=== PATIENT | female | born 1975 | race Caucasian/White ===

== ENCOUNTER → 2017-02-01 | Outpatient (CLI) | payer OTHER ==
[~2017-02-01] MED LIST: DELTASONE10 MG PO; HYDROCODONE BIT1 T11 PO; XANAX0.5 MG PO
== END | disposition home or self-care (01) ==
LOC: RAD 11:54
DX: R05 Cough (principal); R06.02 Shortness of breath; F17.200 Nicotine dependence, unspecified, uncomplicated

== ENCOUNTER 2017-03-28 18:03 | Emergency (ER) | payer OTHER ==
[~2017-03-28] VITALS: Ht 165.1 cm; Wt 113.4 kg
[2017-03-28] MEDS ORDERED: NORVASC10 MG PO (18:13)
[2017-03-28] MEDS ORDERED: COZAAR25 M1 PO (18:13)
[2017-03-28] MEDS ORDERED: NEURONTIN300 MG PO (18:13)
[2017-03-28] MEDS ORDERED: VISTARIL25 M2 PO (18:14)
[2017-03-28] MEDS ORDERED: CEPHALEXIN500 M1 PO (19:45)
[2017-03-28] MEDS ORDERED: BACTRIM DS 8001 TA1 PO (19:45)
== END 2017-03-28 19:45 | disposition home or self-care (01) ==
LOC: ED 18:03
DX: L03.116 Cellulitis of left lower limb (principal); F17.200 Nicotine dependence, unspecified, uncomplicated; Z79.899 Other long term (current) drug therapy

== ENCOUNTER → 2017-06-14 | Outpatient (CLI) | payer OTHER ==
[~2017-06-14] MED LIST changes: +BACTRIM DS 8001 TA1 PO; +CEPHALEXIN500 M1 PO; +COZAAR25 M1 PO; +NEURONTIN300 MG PO; +NORVASC10 MG PO; +VISTARIL25 M2 PO
== END | disposition home or self-care (01) ==
LOC: MRI 11:00
DX: M50.222 Other cervical disc displacement at C5-C6 level (principal); M50.223 Other cervical disc displacement at C6-C7 level; M48.02 Spinal stenosis, cervical region

== ENCOUNTER → 2017-07-12 | Outpatient (CLI) | payer OTHER | END | disposition home or self-care (01) | LOC: MRI 14:00 | DX: M51.36 Other intervertebral disc degeneration, lumbar region (principal); M12.88 Other specific arthropathies, not elsewhere classified, other specified site; M51.24 Other intervertebral disc displacement, thoracic region ==

== ENCOUNTER 2017-08-04 15:21 | Emergency (ER) | payer OTHER ==
[~2017-08-04] VITALS: Wt 113.4 kg
[2017-08-04 16:10] LABS: BILIRUBIN 1+ (NEGATIVE); BLOOD NEGATIVE (NEGATIVE); CLARITY SL CLOUDY (CLEAR); COLOR YELLOW (YELLOW); GLUCOSE NEGATIVE (NEGATIVE); KETONE TRACE (NEGATIVE); LEUKO ESTERASE NEGATIVE (NEGATIVE); NITRITE NEGATIVE (NEGATIVE); SPECIFIC GRAVITY 1.025 (1.005-1.030); UROBILINOGEN 0.2 E.U./dl (0.2-1.0)
[2017-08-04 16:16] LABS: BACTERIA 1+; MUCOUS TRACE; RBC 0-2 rbc/hpf (0-2); WBC 0-2 wbc/hpf (0-5)
[2017-08-04 16:30] LABS: BASO # 0.1 10*3/uL (0.0-0.1); BASO % 0.4 % (0.0-1.0); EOS # 0.1 10*3/uL (0.0-0.4); EOS % 0.5 % (1.0-4.0); HEMOGLOBIN 14.3 g/dl (12.0-16.0); LYMPH # 3.4 10*3/uL (1.3-4.4); LYMPH % 27.7 % (27.0-41.0); MEAN CELL VOLUME 94.5 fl (81.0-99.0); MEAN CORPUSCULAR HGB 31.4 pg (27.0-31.0); MEAN CORPUSCULAR HGB CONC 33.3 g/dl (33.0-37.0); MEAN PLATELET VOLUME 9.8 fl (9.6-12.3); MONO # 0.9 10*3/uL (0.1-1.0); MONO % 7.1 % (3.0-9.0); NEUT # 7.9 10*3/uL (2.3-7.9); NEUT % 63.5 % (47.0-73.0); PLATELET COUNT AUTOMATED 404 10*3/uL (130-400); RED BLOOD COUNT 4.55 10*6/uL (4.10-5.10); RED CELL DISTRI WIDTH 13.2 % (0-14.5); WHITE BLOOD COUNT 12.4 10*3/uL (4.8-10.8)
[2017-08-04 16:40] LABS: INTERNATIONAL NORM RATIO 0.9 (2.0-3.5)
[2017-08-04 16:44] LABS: ALBUMIN 3.5 gm/dl (3.1-4.5); ALKALINE PHOSPHATASE 106 U/L (45-117); BUN 16 mg/dl (7-24); CHLORIDE 107 mmol/L (98-107); CREATININE 0.73 mg/dL (0.55-1.02); LIPASE 111 U/L (73-393); SGOT/AST 26 IU/L (3-35); SGPT/ALT 68 U/L (12-78); SODIUM 139 mmol/L (136-145); TOTAL PROTEIN 8.4 gm/dL (6.4-8.2)
[2017-08-04 16:45] LABS: TROPONIN I < 0.015 ng/ml (<0.045)
[2017-08-04] MEDS ORDERED: ZITHROMAX250 MG PO (16:47)
[2017-08-04] MEDS ORDERED: PREDNISONE10 MG PO (16:47)
== END 2017-08-04 16:53 | disposition home or self-care (01) ==
LOC: ED 15:21
PROVIDERS: Nurse Practitioner Family
DX: J40 Bronchitis, not specified as acute or chronic (principal); H65.91 Unspecified nonsuppurative otitis media, right ear; R04.2 Hemoptysis; F17.200 Nicotine dependence, unspecified, uncomplicated; Z79.899 Other long term (current) drug therapy

== ENCOUNTER → 2017-09-06 | Outpatient (CLI) | payer OTHER ==
[~2017-09-06] MED LIST changes: +PREDNISONE10 MG PO; +ZITHROMAX250 MG PO
== END | disposition home or self-care (01) ==
LOC: CT 11:00
DX: R04.2 Hemoptysis (principal); R09.89 Other specified symptoms and signs involving the circulatory and respiratory systems; F17.200 Nicotine dependence, unspecified, uncomplicated

== ENCOUNTER → 2017-10-14 | Day surgery (SDC) | payer OTHER ==
[~2017-10-14] VITALS: Ht 165.1 cm; Wt 115.7 kg
--- NOTE | ~2017-10-14 | O ---
[place], [place] OPERATIVE NOTE NAME: SANDOR HULL UNIT #: [id number] ROOM: DOCTOR: KAIDEN MUNIZ MD BIRTHDATE: [birth year] DOS: 10/14/2017 GASTROENDOSCOPIC REPORT. INDICATIONS: A 42-year-old patient who has presented with multiple GI complaints, among which has been stool incontinence, epigastric distress, solid food dysphagia, abdominal pain. ALLERGIES: WELLBUTRIN. FAMILY HISTORY: Unknown, adopted. PAST SURGICAL HISTORY: , hysterectomy, D and C, right knee and left knee arthroscopies. PAST MEDICAL HISTORY: Hypertension and pain management chronically. SOCIAL HISTORY: Smoker and social alcohol consumer. PROCEDURE: Today's procedure part of investigation is panendoscopy plus biopsy, esophageal dilation, and colonoscopy. PREMEDICATION: Versed and Diprivan. SCOPE: Olympus forward-viewing gastroscope Q10 video. REPORT: After putting the patient in left lateral position and after application of lubricant to the scope, the scope was introduced. Thereafter, under direct visualization, advanced through the length of esophagus into gastric pouch into duodenal bulb. Mild gastritis is seen. Antral biopsy was obtained. Scope was withdrawn back to the proximal stomach, a balloon size 20 was introduced into the gastric pouch and size 20 was inflated and orally extracted. Highest resistance in thoracic and particularly upper esophagus was experienced. The patient extubated after antral biopsy, tolerated the procedure well. IMPRESSION: Gastritis, which could be secondary to her prednisone intake. DISCUSSION: We are going to adopt omeprazole 20 mg daily. That is going to take care of the ____, we are going to on the other hand proceed with colonoscopic evaluation. So impression is benign esophageal stricture, status post balloon dilation, gastritis, status post biopsy. PROCEDURE: Today's procedure part of investigation of abdominal pain, rectal incontinence is colonoscopy. PREMEDICATION: Versed and Diprivan. SCOPE: Olympus forward-viewing colonoscope 10L video. [place], [place] OPERATIVE NOTE NAME: SANDOR HULL UNIT #: [id number] ROOM: DOCTOR: KAIDEN MUNIZ MD BIRTHDATE: [birth year] REPORT: After putting the patient in left lateral position and after application of lubricant to rectal pouch and digital examination, the scope was introduced. Thereafter, under direct visualization, advanced through the length of colon without difficulty. Mild diverticulosis of sigmoid colon was appreciated. Base of cecum explored. Upon service identified ileocecal valve was defined. The patient was gradually extubated and tolerated the procedure well. IMPRESSION: Diverticulosis, otherwise no acute finding in the colon. An element of IBS has to be considered. The patient is already on Neurontin, hydrocodone as well, and prednisone therapy. I would symptomatically manage this with her high fiber diet and clinical reassessment, requestioning. Thank you very much indeed for your kind referral. KAIDEN MUNIZ MD CM:[place]:OPERATIVE NOTE [id number] KAIDEN MUNIZ MD 10/14/17 1557 interface
[2017-10-14 12:39] VITALS: BP 121/83
[2017-10-14 14:50] VITALS: BP 125/68
[2017-10-14 15:05] VITALS: BP 140/88
[2017-10-14 15:17] VITALS: BP 119/64
== END | disposition home or self-care (01) ==
LOC: SDC 10-11 14:00
DX: K29.50 Unspecified chronic gastritis without bleeding (principal); K57.30 Diverticulosis of large intestine without perforation or abscess without bleeding; F31.9 Bipolar disorder, unspecified; F17.210 Nicotine dependence, cigarettes, uncomplicated; B18.2 Chronic viral hepatitis C; Z98.51 Tubal ligation status; Z88.8 Allergy status to other drugs, medicaments and biological substances; Z90.710 Acquired absence of both cervix and uterus; I10 Essential (primary) hypertension; Z79.899 Other long term (current) drug therapy; G43.909 Migraine, unspecified, not intractable, without status migrainosus; M19.90 Unspecified osteoarthritis, unspecified site

== ENCOUNTER 2017-12-23 22:17 | Emergency (ER) | payer SELFPAY ==
[~2017-12-23] VITALS: Ht 167.6 cm; Wt 117.9 kg
[2017-12-23] MEDS ORDERED: MOBIC15 MG PO (22:31)
== END 2017-12-24 00:09 | disposition home or self-care (01) ==
LOC: ED 22:17
DX: S66.911A Strain of unspecified muscle, fascia and tendon at wrist and hand level, right hand, initial encounter (principal); Z79.899 Other long term (current) drug therapy; W22.01XA Walked into wall, initial encounter; Y93.89 Activity, other specified; Y92.89 Other specified places as the place of occurrence of the external cause; Y99.8 Other external cause status

== ENCOUNTER 2018-03-14 19:02 | Emergency (ER) | payer OTHER, MEDICAID ==
[~2018-03-14] VITALS: Ht 165.1 cm; Wt 113.4 kg
[~2018-03-14 19:02] MED LIST changes: +MOBIC15 MG PO
[2018-03-14] MEDS ORDERED: CEPHALEXIN500 M1 PO (20:33)
== END 2018-03-14 20:55 | disposition home or self-care (01) ==
LOC: ED 19:02
DX: S81.822A Laceration with foreign body, left lower leg, initial encounter (principal); F17.200 Nicotine dependence, unspecified, uncomplicated; Z98.51 Tubal ligation status; Z98.890 Other specified postprocedural states; Z79.899 Other long term (current) drug therapy; W19.XXXA Unspecified fall, initial encounter; Y93.89 Activity, other specified; Y92.89 Other specified places as the place of occurrence of the external cause; Y99.9 Unspecified external cause status

== ENCOUNTER → 2018-03-16 | Outpatient (CLI) | payer OTHER ==
[~2018-03-16] MED LIST changes: +CIPRO500 MG PO; +CLARITIN10 MG PO; +NICORETTE2 MG PO; +NORCO 10-325 T1 EACH PO; +PROTONIX40 MG PO; +ROBAXIN-750750 MG PO; +VITAMIN D5000 UNIT PO; +ZOFRAN8 M1 PO
== END | disposition home or self-care (01) ==
LOC: WOUNDCARE 00:40
DX: S81.812D Laceration without foreign body, left lower leg, subsequent encounter (principal); I10 Essential (primary) hypertension; I89.0 Lymphedema, not elsewhere classified; F17.210 Nicotine dependence, cigarettes, uncomplicated; W18.40XD Slipping, tripping and stumbling without falling, unspecified, subsequent encounter

== ENCOUNTER 2018-03-22 15:13 | Inpatient (IN) | payer OTHER ==
[~2018-03-22] VITALS: Ht 165.1 cm; Wt 114.1 kg
--- NOTE | ~2018-03-22 | WRIGHTHP ---
[place], [place] PATIENT HISTORY AND PHYSICAL EXAM [id number] UN[facility] #: [id number] ROOM: 404 DOCTOR: BEENA KRISHNA MD BIRTHDATE: [birth year] DOS: 03/22/2018 HISTORY OF PRESENT ILLNESS: The patient is 43 years old patient had a fall at home and had a large laceration of the left leg. She came to the Emergency Room and the wound was sutured up. This happened on March 14. She was seen in the office on March 15 and she was to see wound care, but she has been unable to go there because of her insurance is not approving the wound care locally so she came into the Emergency Room with complaints of increased pain, redness and swelling. She was admitted with cellulitis of the left leg with minimal amount of drainage from the wound. She denies having any chest pains or palpitations, does not have any fever or chills, does not have any abdominal pain, nausea, emesis. The patient does have underlying COPD, but does not seem to have any shortness of breath this morning. PAST MEDICAL HISTORY: Significant for; 1. Chronic neck pain, chronic low back pain, for which she takes multiple pain medications. 2. COPD. 3. Moderate cigarette smoker. 4. Benign hypertension. 5. Generalized anxiety disorder. MEDICATIONS: That she is on currently are amlodipine 10 daily, vitamin D 5000 units daily, gabapentin 600 t.i.d., Holden t.i.d., loratadine 10 daily, losartan 100 daily, meloxicam 7.5 b.i.d., methocarbamol 750 daily p.r.n., Protonix 40 mg daily. SOCIAL HISTORY: Smoker of about half to 1 pack of cigarettes. Denies using any alcohol. History of drug addiction in the past. PHYSICAL EXAMINATION: VITAL SIGNS: Graphic trend shows a pressure of 112/61, pulse of 80, respirations 17, temperature 97.8. LUNGS: Diminished breath sounds. No wheezes, rales or rhonchi heard. HEART: Regular. ABDOMEN: Obese, soft. EXTREMITIES: Without any edema on the right, small red, irritated, angry looking rash noticed on the right thigh on multiple areas, which appears to be contact dermatitis. Laceration on the left navarrete area is nicely sutured up with some surrounding redness with evidence of cellulitis seems to be subsiding. Minimal amount of serous drainage, which is normal at this current stage is also seen. No purulent drainage is seen. No foul smelling odor seen. ASSESSMENT AND PLAN: 1. The patient is status post laceration to the wound being sutured. The patient has developed cellulitis and presents with pain and redness. Intravenous antibiotics have been started. Wound cultures have been ordered. 2. Chronic pain syndrome with history of drug addiction in the past. Would avoid further to increase in medications. 3. Benign hypertension, controlled. [place], [place] PATIENT HISTORY AND PHYSICAL EXAM NAME: SANDOR HULL UNIT #: [id number] ROOM: [facility] DOCTOR: BEENA KRISHNA MD BIRTHDATE: [birth year] 4. Chronic obstructive pulmonary disease with moderate cigarette smoking. Continue current medications. BEENA KRISHNA MD CM:HISPHYS:PATIENT HISTORY AND PHYSICAL EXAMINATION [id number] BEENA KRISHNA MD 03/23/18 0844 interface
--- NOTE | ~2018-03-22 | DS ---
[place], [place] DISCHARGE SUMMARY [id number] UNIT #: [id number] ROOM: 404 DOCTOR: BEENA KRISHNA MD BIRTHDATE: [birth year] DOS: 03/24/2018 DIAGNOSES: 1. Cellulitis of the left lower leg. 2. Laceration of the left lower leg following a fall on 03/14/2018. 3. Chronic low back pain, neck pain. 4. Chronic obstructive pulmonary disease. 5. Moderate cigarette smoker. 6. Benign hypertension. 7. Generalized anxiety disorder. MEDICATIONS: She is on are the same as admission. The only new prescription given was Cipro 500 mg twice a day for 7 days. HOSPITAL COURSE: This patient is known to us. She had a fall on the and was seen and the sutures were placed in the ER. I had seen this patient on the and she was supposed to follow the wound care. Unfortunately, her insurance would not pay for wound care at this hospital. She also started complaining of increased pain, redness and swelling of the left leg, so decided to come into the Emergency Room on the and she was admitted with cellulitis. The patient after is not having any new complaints. Dr. Parker did see the patient and advised continued antibiotics. The patient does not have any fever. The white cell count is normalized. The plan is to discharge her to home today to follow up as an outpatient on p.o. antibiotics. The ESR and CRP are 21 and 0.62 respectively, which are fairly on the low side. BEENA KRISHNA MD CM:DISCHARG [id number] BEENA KRISHNA MD 03/24/18 1550 interface
--- NOTE | ~2018-03-22 | PR ---
[place], [place] PROGRESS NOTE [id number] UNIT #: [id number] ROOM: 404 DOCTOR: BEENA KRISHNA MD BIRTHDATE: [birth year] DOS: 03/24/2018 SUBJECTIVE: The patient is not having any new complaints. Appreciate Dr. Parker's input. OBJECTIVE: VITAL SIGNS: Graphic trend shows a pressure of 115/71, pulse of 78, respirations 20, temperature 97.8. LUNGS: Clear. HEART: Regular. ABDOMEN: Obese. EXTREMITIES: Without any edema or redness and cellulitis on the left leg seems to be better. Wound still intact. Wound culture grew heavy Gram-negative bacteria which should respond to floxins. ASSESSMENT AND PLAN: 1. Cellulitis of the left lower leg following a laceration, which has been sutured nicely by the Emergency Room a few days ago. The patient to have the sutures removed at a later date. Antibiotics will be continued as an outpatient p.o. 2. Hypertension, controlled. BEENA KRISHNA MD CM:PNTRANS [phone] BEENA KRISHNA MD 03/24/[id number] interface
[~2018-03-22 15:13] MED LIST changes: -CIPRO500 MG PO; -CLARITIN10 MG PO; -NICORETTE2 MG PO; -NORCO 10-325 T1 EACH PO; -PROTONIX40 MG PO; -ROBAXIN-750750 MG PO; -VITAMIN D5000 UNIT PO; -ZOFRAN8 M1 PO
[2018-03-22 15:16] VITALS: BP 138/88
[2018-03-22 15:46] LABS: BASO # 0.1 10*3/uL (0.0-0.1); BASO % 0.6 % (0.0-1.0); EOS # 0.1 10*3/uL (0.0-0.4); EOS % 1.1 % (1.0-4.0); HEMATOCRIT 44.3 % (37.0-47.0); HEMOGLOBIN 14.2 g/dl (12.0-16.0); LYMPH # 3.2 10*3/uL (1.3-4.4); LYMPH % 33.1 % (27.0-41.0); MEAN CELL VOLUME 93.3 fl (81.0-99.0); MEAN CORPUSCULAR HGB 29.9 pg (27.0-31.0); MEAN CORPUSCULAR HGB CONC 32.1 g/dl (33.0-37.0); MEAN PLATELET VOLUME 9.8 fl (9.6-12.3); MONO # 0.7 10*3/uL (0.1-1.0); MONO % 7.5 % (3.0-9.0); NEUT # 5.5 10*3/uL (2.3-7.9); NEUT % 57.3 % (47.0-73.0); PLATELET COUNT AUTOMATED 411 10*3/uL (130-400); RED BLOOD COUNT 4.75 10*6/uL (4.10-5.10); RED CELL DISTRI WIDTH 13.3 % (0-14.5); WHITE BLOOD COUNT 9.7 10*3/uL (4.8-10.8)
[2018-03-22 16:02] LABS: ALBUMIN 3.7 gm/dl (3.1-4.5); ALKALINE PHOSPHATASE 97 U/L (45-117); BUN 13 mg/dl (7-24); CHLORIDE 108 mmol/L (98-107); CREATININE 0.71 mg/dL (0.55-1.02); POTASSIUM 3.8 mmol/L (3.5-5.1); SGOT/AST 27 IU/L (3-35); SGPT/ALT 49 U/L (12-78); SODIUM 139 mmol/L (136-145); TOTAL PROTEIN 8.3 gm/dL (6.4-8.2)
[2018-03-22 18:00] VITALS: BP 140/94
[2018-03-22 18:40] VITALS: BP 140/94
[2018-03-22 20:00] VITALS: BP 134/88
[2018-03-22] MEDS ORDERED: VITAMIN D5000 UNIT PO (21:31)
[2018-03-22] MEDS ORDERED: NORCO 10-325 T1 EACH PO (21:31)
[2018-03-22] MEDS ORDERED: ROBAXIN-750750 MG PO (21:32)
[2018-03-22] MEDS ORDERED: PROTONIX40 MG PO (21:33)
[2018-03-22] MEDS ORDERED: ZOFRAN8 M1 PO (21:34)
[2018-03-22] MEDS ORDERED: CLARITIN10 MG PO (21:34)
[2018-03-22] MEDS ORDERED: NICORETTE2 MG PO (21:35)
[2018-03-23] VITALS: BP 112/61
[2018-03-23 07:58] LABS: BASO # 0.1 10*3/uL (0.0-0.1); BASO % 0.7 % (0.0-1.0); EOS # 0.1 10*3/uL (0.0-0.4); EOS % 1.5 % (1.0-4.0); HEMOGLOBIN 12.4 g/dl (12.0-16.0); LYMPH # 3.3 10*3/uL (1.3-4.4); LYMPH % 37.7 % (27.0-41.0); MEAN CORPUSCULAR HGB 30.8 pg (27.0-31.0); MEAN CORPUSCULAR HGB CONC 32.7 g/dl (33.0-37.0); MONO # 0.7 10*3/uL (0.1-1.0); MONO % 7.6 % (3.0-9.0); NEUT # 4.6 10*3/uL (2.3-7.9); NEUT % 52.2 % (47.0-73.0); PLATELET COUNT AUTOMATED 336 10*3/uL (130-400); RED BLOOD COUNT 4.03 10*6/uL (4.10-5.10); RED CELL DISTRI WIDTH 13.2 % (0-14.5); WHITE BLOOD COUNT 8.8 10*3/uL (4.8-10.8)
[2018-03-23 08:00] VITALS: BP 107/59
[2018-03-23 08:03] LABS: HEMATOCRIT 37.9 % (37.0-47.0)
[2018-03-23 16:00] VITALS: BP 105/61
[2018-03-23 20:00] VITALS: BP 127/97; BP 130/82; BP 130/88
[2018-03-24] VITALS: BP 115/71
[2018-03-24 08:00] VITALS: BP 108/64
[2018-03-24] MEDS ORDERED: CIPRO500 MG PO (08:02)
== END 2018-03-24 09:59 | disposition home or self-care (01) | DRG 603 ==
LOC: ED 15:13 → 4E 17:46 → EDHOLD 17:46 → 4E 17:55
PROVIDERS: Internal Medicine; Physician Assistant
PROC: 02HV33Z Insertion of Infusion Device into Superior Vena Cava, Percutaneous Approach (ICD-10-PCS; principal; 2018-03-22)
PROC: B548ZZA Ultrasonography of Superior Vena Cava, Guidance (ICD-10-PCS; 2018-03-22)
DX: L03.116 Cellulitis of left lower limb (principal); Z68.41 Body mass index [BMI] 40.0-44.9, adult; E66.9 Obesity, unspecified; F17.200 Nicotine dependence, unspecified, uncomplicated; F41.1 Generalized anxiety disorder; I10 Essential (primary) hypertension; J44.9 Chronic obstructive pulmonary disease, unspecified; M54.5 Low back pain; M54.2 Cervicalgia; G89.4 Chronic pain syndrome; F41.9 Anxiety disorder, unspecified; Z79.899 Other long term (current) drug therapy; Z98.51 Tubal ligation status

== ENCOUNTER → 2018-03-30 | Outpatient (CLI) | payer OTHER ==
[~2018-03-30] MED LIST changes: +CIPRO500 MG PO; +CLARITIN10 MG PO; +NICORETTE2 MG PO; +NORCO 10-325 T1 EACH PO; +PROTONIX40 MG PO; +ROBAXIN-750750 MG PO; +VITAMIN D5000 UNIT PO; +ZOFRAN8 M1 PO
== END | disposition home or self-care (01) ==
LOC: WOUNDCARE 01:14
DX: S81.812D Laceration without foreign body, left lower leg, subsequent encounter (principal); I10 Essential (primary) hypertension; I89.0 Lymphedema, not elsewhere classified; F17.210 Nicotine dependence, cigarettes, uncomplicated; W18.40XD Slipping, tripping and stumbling without falling, unspecified, subsequent encounter

== ENCOUNTER → 2018-04-06 | Outpatient (CLI) | payer OTHER | END | disposition home or self-care (01) | LOC: WOUNDCARE 04:44 | DX: S81.812D Laceration without foreign body, left lower leg, subsequent encounter (principal); I89.0 Lymphedema, not elsewhere classified; I10 Essential (primary) hypertension; F17.200 Nicotine dependence, unspecified, uncomplicated; W18.40XD Slipping, tripping and stumbling without falling, unspecified, subsequent encounter ==

== ENCOUNTER 2018-04-10 22:52 | Emergency (ER) | payer OTHER ==
[~2018-04-10] VITALS: Ht 165.1 cm; Wt 113.4 kg
[2018-04-10 23:55] LABS: BASO # 0.1 10*3/uL (0.0-0.1); BASO % 0.8 % (0.0-1.0); EOS # 0.2 10*3/uL (0.0-0.4); EOS % 1.5 % (1.0-4.0); HEMATOCRIT 42.2 % (37.0-47.0); HEMOGLOBIN 13.9 g/dl (12.0-16.0); LYMPH # 3.8 10*3/uL (1.3-4.4); LYMPH % 36.3 % (27.0-41.0); MEAN CELL VOLUME 92.5 fl (81.0-99.0); MEAN CORPUSCULAR HGB 30.5 pg (27.0-31.0); MEAN CORPUSCULAR HGB CONC 32.9 g/dl (33.0-37.0); MEAN PLATELET VOLUME 10.1 fl (9.6-12.3); MONO # 0.8 10*3/uL (0.1-1.0); MONO % 7.2 % (3.0-9.0); NEUT # 5.7 10*3/uL (2.3-7.9); NEUT % 53.9 % (47.0-73.0); PLATELET COUNT AUTOMATED 415 10*3/uL (130-400); RED BLOOD COUNT 4.56 10*6/uL (4.10-5.10); RED CELL DISTRI WIDTH 13.8 % (0-14.5); WHITE BLOOD COUNT 10.6 10*3/uL (4.8-10.8)
[2018-04-11 00:09] LABS: ALBUMIN 3.6 gm/dl (3.1-4.5); ALKALINE PHOSPHATASE 92 U/L (45-117); BUN 15 mg/dl (7-24); CHLORIDE 110 mmol/L (98-107); CREATININE 0.66 mg/dL (0.55-1.02); POTASSIUM 4.1 mmol/L (3.5-5.1); SGOT/AST 20 IU/L (3-35); SGPT/ALT 39 U/L (12-78); SODIUM 143 mmol/L (136-145); TOTAL PROTEIN 8.2 gm/dL (6.4-8.2)
== END 2018-04-11 01:00 | disposition home or self-care (01) ==
LOC: ED 22:52
PROVIDERS: Nurse Practitioner
DX: S81.812D Laceration without foreign body, left lower leg, subsequent encounter (principal); L76.22 Postprocedural hemorrhage of skin and subcutaneous tissue following other procedure; Z79.899 Other long term (current) drug therapy; X58.XXXD Exposure to other specified factors, subsequent encounter

== ENCOUNTER → 2018-04-12 | Outpatient (CLI) | payer SELFPAY | END | disposition home or self-care (01) | LOC: WOUNDCARE 08:33 | DX: S81.812D Laceration without foreign body, left lower leg, subsequent encounter (principal); I89.0 Lymphedema, not elsewhere classified; I10 Essential (primary) hypertension; F17.210 Nicotine dependence, cigarettes, uncomplicated; W18.40XD Slipping, tripping and stumbling without falling, unspecified, subsequent encounter ==

== ENCOUNTER → 2018-05-01 | Outpatient (CLI) | payer SELFPAY | END | disposition home or self-care (01) | LOC: WOUNDCARE 00:22 | DX: S81.812D Laceration without foreign body, left lower leg, subsequent encounter (principal); I89.0 Lymphedema, not elsewhere classified; I10 Essential (primary) hypertension; F17.200 Nicotine dependence, unspecified, uncomplicated; W18.40XD Slipping, tripping and stumbling without falling, unspecified, subsequent encounter ==

== ENCOUNTER → 2018-06-06 | Outpatient (CLI) | payer OTHER | END | disposition home or self-care (01) | LOC: WOUNDCARE 01:33 | DX: S81.812D Laceration without foreign body, left lower leg, subsequent encounter (principal); I89.0 Lymphedema, not elsewhere classified; I10 Essential (primary) hypertension; F17.290 Nicotine dependence, other tobacco product, uncomplicated; W18.40XD Slipping, tripping and stumbling without falling, unspecified, subsequent encounter ==

== ENCOUNTER → 2018-06-13 | Outpatient (CLI) | payer OTHER | END | disposition home or self-care (01) | LOC: WOUNDCARE 02:20 | DX: S81.812D Laceration without foreign body, left lower leg, subsequent encounter (principal); I89.0 Lymphedema, not elsewhere classified; I10 Essential (primary) hypertension; F17.290 Nicotine dependence, other tobacco product, uncomplicated; W18.40XD Slipping, tripping and stumbling without falling, unspecified, subsequent encounter ==

== ENCOUNTER → 2018-06-21 | Outpatient (CLI) | payer OTHER | END | disposition home or self-care (01) | LOC: WOUNDCARE 00:41 | DX: S81.812D Laceration without foreign body, left lower leg, subsequent encounter (principal); I89.0 Lymphedema, not elsewhere classified; W18.40XD Slipping, tripping and stumbling without falling, unspecified, subsequent encounter; I10 Essential (primary) hypertension; F17.290 Nicotine dependence, other tobacco product, uncomplicated ==

== ENCOUNTER → 2018-06-28 | Outpatient (CLI) | payer OTHER | END | disposition home or self-care (01) | LOC: WOUNDCARE 04:56 | DX: S81.812D Laceration without foreign body, left lower leg, subsequent encounter (principal); I89.0 Lymphedema, not elsewhere classified; I10 Essential (primary) hypertension; F17.290 Nicotine dependence, other tobacco product, uncomplicated; W18.40XD Slipping, tripping and stumbling without falling, unspecified, subsequent encounter ==

== ENCOUNTER → 2018-07-05 | Outpatient (CLI) | payer OTHER | END | disposition home or self-care (01) | LOC: WOUNDCARE 01:21 | DX: S81.812D Laceration without foreign body, left lower leg, subsequent encounter (principal); I89.0 Lymphedema, not elsewhere classified; I10 Essential (primary) hypertension; F17.290 Nicotine dependence, other tobacco product, uncomplicated; Z68.41 Body mass index [BMI] 40.0-44.9, adult; W18.40XD Slipping, tripping and stumbling without falling, unspecified, subsequent encounter ==